=== PATIENT | female | born 1950 | race African-American/Black ===

== ENCOUNTER 2018-05-08 13:42 | Emergency (ER) | payer OTHER, MEDICARE ==
[2018-05-08 13:50] VITALS: BP 147/73
[2018-05-08] MEDS ORDERED: ACETAMINOPHEN 325 MG TABLET PO ONE (14:42)
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
--- NOTE | 2018-05-08 22:53 | EKG REPORT ---
SEVERITY:- BORDERLINE ECG - SINUS RHYTHM PROBABLE LEFT ATRIAL ABNORMALITY : Confirmed by: Estefania Renee MD 08-May-2018 22:52:29
== END 2018-05-08 16:28 | disposition home or self-care (01) ==
LOC: ER 13:42
DX: S13.4XXA Sprain of ligaments of cervical spine, initial encounter (principal); T14.8XXA Other injury of unspecified body region, initial encounter; M25.561 Pain in right knee; M54.2 Cervicalgia; M54.9 Dorsalgia, unspecified; R29.898 Other symptoms and signs involving the musculoskeletal system; V43.52XA Car driver injured in collision with other type car in traffic accident, initial encounter; I10 Essential (primary) hypertension
CPT/HCPCS: 71046; 72070; 72110; 72125; 93005; 93010; 99284